=== PATIENT | female | born 1935 | race Caucasian/White ===

== ENCOUNTER 2018-12-03 14:27 | Emergency (ER) | payer OTHER ==
[~2018-12-03] VITALS: Ht 157.5 cm; Wt 65.5 kg
[2018-12-03 14:41] VITALS: Ht 157.5 cm; Wt 65.5 kg
--- NOTE | 2018-12-03 15:14 | ERD ---
ER Documentation Chief Complaint Chief Complaint c/o chest pain HPI The patient is a 83-year-old female, presenting to the ER because of substernal chest pain around 10 AM. She denies similar symptoms previously, denies chest pain with vomiting/radiation/exertion/diaphoresis, dyspnea, abdominal pain, vomiting, dysuria, diarrhea. She was on her way to the car to go to [facility] however she tripped and fell about 45 minutes prior to arrival. She complained of transient right upper extremity pain but denies any pain at this time, denies headache, neck pain. She does not smoke nor drink, use O2 as needed at home She was treated with aspirin 150 mg p.o. by EMS with good response, currently denies any chest pain Medical history: Hypertension, CAD, dyslipidemia Surgical history: none ROS All systems reviewed and are negative except as per history of present illness. Medications Home Meds Reported Medications Furosemide* (Furosemide*) 40 Mg Tablet, 40 MG PO DAILY, TAB 12/03/18 Carvedilol* (Carvedilol*) 6.25 Mg Tablet, 6.25 MG PO BID, #60 TAB 12/03/18 Potassium Chloride (K-Tab) 10 Meq Tablet.sa, 10 MEQ PO DAILY, TAB.SA 12/03/18 Atorvastatin Calcium* (Atorvastatin Calcium*) 20 Mg Tablet, 20 MG PO QHS, #30 TAB 12/03/18 Lisinopril/Hydrochlorothiazide (Lisinopril-Hctz 20-25 mg Tab) 1 Each Tablet, 1 EACH PO DAILY, TAB 12/03/18 Tramadol Hcl* (Ultram*) 50 Mg Tablet, 50 MG PO NEEDED PRN for PAIN, TAB 12/03/18 Albuterol Sulfate* (Ventolin HFA*) 18 Gm Hfa.aer.ad, 2 PUFF INHALATION Q4H, #1 INHALER 12/03/18 Allergies Allergies: Coded Allergies: nifedipine (Unverified Allergy, Unknown, SWELLING, 12/03/18) Physical Exam Vitals Vital Signs Date Temp Pulse Resp B/P (MAP) Pulse Ox O2 O2 Flow FiO2 Time Delivery Rate 12/03/18 77 18 156/83 96 Room Air 18:39 (107) 12/03/18 99.2 78 18 150/55 99 Nasal 2.0 17:19 (86) Cannula 12/03/18 Nasal 2 15:27 Cannula 12/03/18 98.1 67 20 191/80 97 14:41 (117) Physical Exam Const: No acute distress. Head: Atraumatic. Eyes: Normal Conjunctiva. ENT: Normal External Ears, Nose and Mouth. Neck: Full range of motion. No meningismus. Resp: Clear to auscultation bilaterally. Cardio: Regular rate and rhythm. Abd: Soft, non distended, normal bowel sounds, non tender. Skin: No petechiae or rashes. Back: No midline or flank tenderness. Ext: Right shoulder/right elbow/right wrist and with minimal vague discomfort, no skin violation, no ecchymosis, normal capillary refill Neur: Awake and alert. No focal deficit Psych: Normal Mood and Affect. Result Diagram: 12/03/18 1505 12/03/18 1505 Results 24 hrs Laboratory Tests Test 12/03/18 15:05 White Blood Count 9.7 10^3/ul Red Blood Count 4.80 10^6/ul Hemoglobin 14.7 g/dl Hematocrit 44.9 % Mean Corpuscular Volume 93.5 fl Mean Corpuscular Hemoglobin 30.6 pg Mean Corpuscular Hemoglobin Concent 32.7 g/dl Red Cell Distribution Width 12.6 % Platelet Count 131 10^3/UL Mean Platelet Volume 11.5 fl Immature Granulocytes % 0.300 % Neutrophils % 78.6 % Lymphocytes % 13.0 % Monocytes % 6.8 % Eosinophils % 0.8 % Basophils % 0.5 % Nucleated Red Blood Cells % 0.0 /100WBC Immature Granulocytes # 0.030 10^3/ul Neutrophils # 7.6 10^3/ul Lymphocytes # 1.3 10^3/ul Monocytes # 0.7 10^3/ul Eosinophils # 0.1 10^3/ul Basophils # 0.1 10^3/ul Nucleated Red Blood Cells # 0.0 10^3/ul Sodium Level 140 mmol/L Potassium Level 3.7 mmol/L Chloride Level 102 mmol/L Carbon Dioxide Level 31 mmol/L Anion Gap 7 Blood Urea Nitrogen 12 mg/dl Creatinine 0.62 mg/dl Est Glomerular Filtrat Rate mL/min mL/min Glucose Level 119 mg/dl Calcium Level 9.1 mg/dl Troponin I < 0.012 ng/ml [facility]/[place] [id number] Radiology Main Line: [phone] DIAGNOSTIC IMAGING REPORT Patient: LANCE ROJAS : 1935 Age: 83 Sex: F MR #: [id number] DOS: 12/03/18 1502 Ordering MD: HEATHER MCCRAY MD Location: E/R Room/Bed: PROCEDURE: XR Chest. CLINICAL INDICATION: Chest pain TECHNIQUE: Single frontal view of the chest was obtained. COMPARISON: None FINDINGS: The heart is within normal limits. The thoracic aorta is calcified. The lungs are clear. There is no pleural effusion or pneumothorax. RPTAT: AA IMPRESSION: No acute disease. Calcified aorta consistent with atherosclerotic disease. .Ruy Whittaker MD, Date Time Electronically viewed and signed by .Ruy Whittaker MD, MD on 12/03/2018 15:45 .S/ CC: HEATHER MCCRAY MD [phone] EKG: At 3:16 PM read by emergency physician Rate/Rhythm: Normal Sinus Rhythm 67 beats/min QRS, ST, T-waves: No ST elevation, no T inversion, PAC, LBBB Impression: Abnormal EKG EKG: At 3:50 PM read by emergency physician Rate/Rhythm: Normal Sinus Rhythm 64 beats/min QRS, ST, T-waves: No ST elevation, LAD, LBBB Impression: Abnormal EKG MEDICAL MAKING DECISION: The patient is a 83-year-old female with multiple cardiac risk factors, presenting with acute chest pain that is concerning for acute ACS. She is pain-free in the ER, and does not need any nitroglycerin The differential diagnoses considered include but are not limited to acute coronary syndrome, acute myocardial infarction, pericarditis, pulmonary embolis m, aortic dissection, pneumonia, pleural effusion, pneumothorax, GERD, chest wall pain. Departure Diagnosis: Primary Impression: Chest pain Additional Impression: Thrombocytopenia Condition: Stable Comments I discussed the findings with the patient. I discussed the patient with the Olivier Farris at 5:35 pm who was made aware of the lab, the treatment, the patient condition. The patient is transferred to a [facility] bed at [place] Disclaimer: Inadvertent spelling and grammatical errors are likely due to EHR/dictation software use and do not reflect on the overall quality of patient care. Also, please note that the electronic time recorded on this note does not necessarily reflect the actual time of the patient encounter. HEATHER MCCRAY MD Dec 03, 2018 15:14
[2018-12-03] MEDS ORDERED: ALBU18HF INHALATION (17:46)
[2018-12-03] MEDS ORDERED: ATOR20TA38 PO (17:47)
[2018-12-03] MEDS ORDERED: TRAM50TA PO (17:47)
[2018-12-03] MEDS ORDERED: LISI1TAB8 PO (17:47)
[2018-12-03] MEDS ORDERED: POTA10TA2 PO (17:48)
[2018-12-03] MEDS ORDERED: CARV6.2579 PO (17:48)
[2018-12-03] MEDS ORDERED: FURO40TA4 PO (17:49)
[2018-12-03 18:39] VITALS: BP 156/83; PULSE 77; RESP 18
== END 2018-12-03 19:10 | disposition short-term general hospital (02) ==
LOC: E/R 14:27
DX: R07.9 Chest pain, unspecified (principal); D69.6 Thrombocytopenia, unspecified; I10 Essential (primary) hypertension; I25.10 Atherosclerotic heart disease of native coronary artery without angina pectoris
CPT/HCPCS: 36415; 71045; 80048; 84484; 85025; 93005